=== PATIENT | male | born 1965 | race Caucasian/White ===

== ENCOUNTER 2016-10-09 06:37 | Emergency (ER) | payer OTHER ==
--- NOTE | ~2016-10-09 | US115 ---
[facility] A Service of [facility] RADIOLOGY TEXT RESULTS PATIENT: MONAE SPENCE LOCATION: [facility] : 61 UNIT #: [id number] AGE: [address]: Romero Gutierrez MD SEX: M ORDER DR: [id number] [facility] [address] [place], [place] [address] [id number] MR#: [id number] Acc #: [id number] NAME: MONAE SPENCE : 1965 SEX: M STUDY DATE/TIME: 10/09/2016 7:51 UNIT: RAQUEL ROOM: STUDY DESCRIPTION: US Scrotum and Contents Attending Physician: Romero Gutierrez M.D. Ordering Physician: Romero Gutierrez M.D. Primary Care Physician: Primary Care Physician No MEDICAL IMAGING REPORT This report is preliminary unless electronic signature is present EXAM Scrotal ultrasound and Doppler, 10/09/2016 HISTORY Left scrotal swelling for 1 day. PROCEDURE Cross-scale imaging, color-Doppler flow imaging and Doppler waveform analysis. FINDINGS The right testicle is normal in size and normal in appearance on cross-scale. There is a small right hydrocele. Overall vascularity is normal and normal venous and arterial Doppler waveforms are demonstrated. On the left there is an extremely large hydrocele. The testicle itself is normal in cross-scale appearance and size and overall vascularity is normal and both normal arterial and venous Doppler waveforms are seen. There is no testicular mass, though there is a small epididymal head cyst. IMPRESSION 1. Small right and very large left hydrocele. Small left epididymal head cyst. 2. Otherwise normal bilateral testicular ultrasound and Doppler. Normal vascularity and blood flow to both testicles. No solid mass/testicular mass on either side. Dictated by... Elroy Foss M.D. THIS IS AN ELECTRONICALLY VERIFIED REPORT Elroy Foss M.D. at 10/11/2016 3:46 PM ALFONZO/rony [facility] A Service of [facility] / [facility] RADIOLOGY TEXT RESULTS PATIENT: MONAE SPENCE LOCATION: [facility] : 61 UNIT #: [id number] AGE: [address]: Romero Gutierrez MD SEX: M ORDER DR: TD: 10/09/2016 13:03 JOB #: [id number] MEDICAL IMAGING REPORT COPY
[2016-10-09 07:18] LABS: URINE SOURCE CLEAN CATCH
[2016-10-09 07:29] LABS: URINE APPEARANCE CLEAR; URINE BILIRUBIN NEG (NEG); URINE BLOOD NEG (NEG); URINE COLOR YELLOW; URINE GLUCOSE NEG (NEG); URINE KETONE NEG (NEG); URINE LEUKOCYTE ESTERASE NEG (NEG); URINE NITRATE NEG (NEG); URINE PROTEIN NEG (NEG); URINE SPECIFIC GRAVITY 1.005 (1.003-1.035); URINE UROBILINOGEN 0.2 MG/DL (NEG)
[2016-10-09 07:35] LABS: CULTURE INDICATED? NO
== END 2016-10-09 09:09 | disposition home or self-care (01) ==
LOC: CED 06:37
PROVIDERS: Emergency Medicine
DX: N43.3 Hydrocele, unspecified (principal); I10 Essential (primary) hypertension; F17.200 Nicotine dependence, unspecified, uncomplicated
CPT/HCPCS: 76870; 81003; 93976; 99284